=== PATIENT | female | born 1995 | race Caucasian/White ===

== ENCOUNTER 2021-06-06 06:38 | Inpatient (IN) | payer BC ==
[~2021-06-06] VITALS: Ht 162.6 cm; Wt 73.5 kg
[2021-06-06 07:03] LABS: HEMOGLOBIN 10.1 gm/dl (12.3-15.3); RED BLOOD COUNT 4.12 M/UL (4.00-5.10); WHITE BLOOD COUNT 9.9 K/UL (4.5-11.0)
[2021-06-06] MEDS ORDERED: FERROUS SULFAT325 M2 PO (07:35)
[2021-06-06] MEDS ORDERED: PRENATAL VITAM1 EAC3 PO (07:36)
[2021-06-06] MEDS ORDERED: PEPCID20 MG PO (07:37)
[2021-06-06] MEDS ORDERED: IBUPROFEN600 MG PO (08:40)
[2021-06-06] MEDS ORDERED: HYDROCODON-ACE1 EAC4 PO (08:40)
[2021-06-06] MEDS ORDERED: DOCUSATE SODIU100 MG PO (08:40)
[2021-06-07 05:22] LABS: HEMOGLOBIN 8.4 gm/dl (12.3-15.3)
[2021-06-08] MEDS ORDERED: FERROUS SULFAT325 MG PO (15:20)
== END 2021-06-08 18:22 | disposition home or self-care (01) | DRG 787 ==
LOC: OB 06:38
PROVIDERS: ADMIT Obstetrics & Gynecology
PROC: 3E0234Z Introduction of Serum, Toxoid and Vaccine into Muscle, Percutaneous Approach (ICD-10-PCS; 2021-06-06)
PROC: 10D00Z1 Extraction of Products of Conception, Low, Open Approach (ICD-10-PCS; principal; 2021-06-06 07:30)
DX: O44.03 Complete placenta previa NOS or without hemorrhage, third trimester (principal); D62 Acute posthemorrhagic anemia; O99.344 Other mental disorders complicating childbirth; F41.9 Anxiety disorder, unspecified; O99.02 Anemia complicating childbirth; Z37.0 Single live birth; Z3A.36 36 weeks gestation of pregnancy; Z20.822 Contact with and (suspected) exposure to COVID-19; Z28.310 Unvaccinated for COVID-19; Z82.49 Family history of ischemic heart disease and other diseases of the circulatory system; Z80.1 Family history of malignant neoplasm of trachea, bronchus and lung; Z80.3 Family history of malignant neoplasm of breast; Z84.2 Family history of other diseases of the genitourinary system; Z23 Encounter for immunization
CPT/HCPCS: 36415; 81001; 82800; 85014; 85018; 85025; 90715; C9113; J0690; J1885; J2274; J2370; J2405; J2590; J3010; J7120